=== PATIENT | male | born 1960 | race African-American/Black ===

== ENCOUNTER → 2018-11-23 | Day surgery (SDC) | payer OTHER ==
[2018-11-21 09:52] VITALS: BMI 26.4
[~2018-11-23] MED LIST: LIDOCAINE HCL/PF 2% SDV 5ML VIAL ONE; PROPOFOL 20 ML ONE
[2018-11-23 12:06] VITALS: TEMP 98.3
[2018-11-23 12:22] VITALS: BP 138/75; PULSE 70
--- NOTE | 2018-11-25 16:34 | PATH ---
Surgical Pathology Report Patient Name: YEE FLAHERTY [facility]. Rec. #: [id number] /Age/Gender: 1960 (Age: 58) / M Account: [id number] Location: [facility] Taken: 11/23/2018 Received: 11/23/2018 Reported: 11/25/2018 Physicians: Selena Romero M.D. Specimen(s) Received A: BX POLYP TRANSVERSE COLON B: BX POLYP DESCENDING COLON C: BX POLYP SIGMOID COLON AT 20CM Clinical History Screening Postoperative diagnosis: Colon polyps, hemorrhoids Final Diagnosis A. TRANSVERSE COLON, POLYP, BIOPSY: HYPERPLASTIC POLYP. B. DESCENDING COLON, POLYP, BIOPSY: HYPERPLASTIC POLYP. C. SIGMOID COLON AT 20 CM, POLYP, BIOPSY: HYPERPLASTIC POLYP. Electronically Signed Melia Hazel M.D. Gross Description A. Received in formalin, labeled "polyp transverse colon" is a kate, irregular portion of soft tissue measuring 0.6 cm. in greatest dimension. The specimen is submitted in toto in one cassette. B. Received in formalin, labeled "biopsy polyp descending colon" is a kate, irregular portion of soft tissue measuring 0.4 cm. in greatest dimension. The specimen is submitted in toto in one cassette. C. Received in formalin, labeled "biopsy polyp sigmoid colon at 20 cm" are 2 kate, irregular portions of soft tissue measuring 0.3 and 0.5 cm. in greatest dimension. The specimens are submitted in toto in one cassette. DL/11/24/2018 saudi11/24/2018
== END | disposition home or self-care (01) ==
LOC: FASU-ENDO 09:23
PROVIDERS: ATTEND Internal Medicine Gastroenterology
PROC: 0DBL8ZX Excision of Transverse Colon, Via Natural or Artificial Opening Endoscopic, Diagnostic (ICD-10-PCS; 2018-11-23)
PROC: 0DBN8ZX Excision of Sigmoid Colon, Via Natural or Artificial Opening Endoscopic, Diagnostic (ICD-10-PCS; 2018-11-23)
PROC: 0DBM8ZX Excision of Descending Colon, Via Natural or Artificial Opening Endoscopic, Diagnostic (ICD-10-PCS; principal; 2018-11-23 11:22)
DX: Z12.11 Encounter for screening for malignant neoplasm of colon (principal); K63.5 Polyp of colon; K64.1 Second degree hemorrhoids
CPT/HCPCS: 88305-TC

== ENCOUNTER 2023-11-17 07:50 | Emergency (ER) | payer BC, OTHER ==
[2023-11-17 08:02] VITALS: BP 154/78; PULSE 90; RESP 20; TEMP 98.2; BMI 36.9
== END 2023-11-17 08:28 | disposition home or self-care (01) ==
LOC: JERFT 07:50
PROC: 09C47ZZ Extirpation of Matter from Left External Auditory Canal, Via Natural or Artificial Opening (ICD-10-PCS; principal; 2023-11-17)
DX: T16.2XXA Foreign body in left ear, initial encounter (principal)
CPT/HCPCS: 99282-25